=== PATIENT | female | born 1945 | race Caucasian/White ===

== ENCOUNTER → 2017-03-12 | Outpatient (CLI) | payer MEDICARE, OTHER ==
[~2017-03-12] MED LIST: BLOOD PRESSURE MED; CHOLESTEROL MED; DIABETES MED
--- NOTE | 2017-03-12 15:14 | RADRPT ---
PROCEDURE: XR Chest. CLINICAL INDICATION: Preoperative. TECHNIQUE: Single frontal view. COMPARISON: No prior study is available for comparison. FINDINGS: The lungs are clear. The heart size is normal. There is calcification in the aorta consistent with atherosclerosis. There is no pleural effusion. There is no pneumothorax. IMPRESSION: 1. Atherosclerosis. 2. Otherwise normal chest x-ray. RPTAT: QQ .Joseph Gonsales MD, MD Date Time Electronically viewed and signed by .Joseph Gonsales MD, MD on 03/12/2017 15:14 .R/
== END | disposition home or self-care (01) ==
LOC: RAD 12:41
PROVIDERS: ATTEND Internal Medicine
DX: Z01.818 Encounter for other preprocedural examination (principal); I70.0 Atherosclerosis of aorta
CPT/HCPCS: 71010

== ENCOUNTER 2018-08-25 13:22 | Inpatient (IN) | END 2018-08-26 04:26 | disposition EXP | DRG 871 ==